=== PATIENT | male | born 1965 | race Caucasian/White ===

== ENCOUNTER → 2017-05-26 | Outpatient (CLI) | payer OTHER ==
[~2017-05-26] MED LIST: ABILIFY 15MG TA15 MG PO; ABILIFY5 MG; CEPHALEXIN500 M1 PO; DEPAKOTE; DOXYCYCLINE 10100 MG PO; MIRTAZAPINE; MVI; NO HOME MEDICATIONS; NORCO 325 MG-51 TAB PO; PAXIL 20MG20 MG PO; PERCOCET 325 MG1 TA2 PO; PERCOCET 5/321 UDTAB PO; SERTRALINE; WELLBUTRIN XL150 MG PO; ZOLOFT100 MG PO; [UNRECOGNIZED DRUG - OTHER]
== END ==
LOC: COL.VAS 09:00
DX: I08.1 Rheumatic disorders of both mitral and tricuspid valves (principal)

== ENCOUNTER → 2018-02-18 | Outpatient (CLI) | payer OTHER ==
[2018-02-18 09:18] LABS: HEMATOCRIT 39.4 % (42.0-52.0); HEMOGLOBIN 13.6 g/dl (13.5-18.0); MEAN CELL VOLUME 93 fl (80.0-100.0); MEAN CORPUSCULAR HEMOGLOBIN 32 pg (27.0-31.0); MEAN CORPUSCULAR HGB CONC 35 g/dl (33.0-37.0); MEAN PLATELET VOLUME 10.7 fl (7.4-10.4); PLATELET COUNT 244 K/mm3 (130-400); RED BLOOD COUNT 4.24 M/mm3 (4.20-5.60); REDCELL DISTRIBUTION WIDTH-CV 12.8 % (11.5-14.5)
[2018-02-18 10:09] LABS: ERYTHROCYTE SEDIMENTATION RATE 2 mm/hr (0-30)
== END ==
LOC: COL.LAB 08:48
PROVIDERS: Orthopaedic Surgery
DX: Z47.89 Encounter for other orthopedic aftercare (principal); M25.511 Pain in right shoulder; R22.31 Localized swelling, mass and lump, right upper limb

== ENCOUNTER 2021-09-10 10:29 | Outpatient (RCR) | payer BC | END 2021-10-25 | disposition home or self-care (01) | LOC: WSPT | DX: M75.121 Complete rotator cuff tear or rupture of right shoulder, not specified as traumatic (principal) ==

== ENCOUNTER 2021-10-23 12:45 | Outpatient (RCR) | payer BC | END 2021-10-25 | disposition home or self-care (01) | LOC: WSPT | DX: Z98.890 Other specified postprocedural states (principal) ==

== ENCOUNTER 2021-12-18 15:45 | Outpatient (RCR) | payer BC | END 2021-12-23 | disposition home or self-care (01) | LOC: WSPT | DX: M75.101 Unspecified rotator cuff tear or rupture of right shoulder, not specified as traumatic (principal); Z96.611 Presence of right artificial shoulder joint ==

== ENCOUNTER 2022-01-09 09:45 | Outpatient (RCR) | payer BC | END 2022-01-23 | LOC: WSPT | DX: Z87.828 Personal history of other (healed) physical injury and trauma (principal) ==

== ENCOUNTER 2022-04-21 17:45 | Emergency (ER) | payer SELFPAY ==
[2022-04-21 18:13] VITALS: TEMP 98.9
[2022-04-21] MEDS ORDERED: AMOXICILLIN 8751 TAB PO (20:46)
[2022-04-21] MEDS ORDERED: PERCOCET 325 MG1 TA2 PO (20:46)
[2022-04-21 21:24] VITALS: BP 156/103; PULSE 66
== END 2022-04-21 21:24 | disposition home or self-care (01) ==
LOC: COL.ER 17:45
DX: S61.412A Laceration without foreign body of left hand, initial encounter (principal); Z88.5 Allergy status to narcotic agent; Z23 Encounter for immunization; Z28.310 Unvaccinated for COVID-19; W54.0XXA Bitten by dog, initial encounter